=== PATIENT | male | born 1940 | race Caucasian/White ===

== ENCOUNTER 2017-01-26 15:25 | Emergency (ER) | payer MEDICARE, BC ==
[2017-01-26] MEDS ORDERED: ASPIRIN 81 MG CHEWABLE CTB PO ONE (15:38)
[2017-01-26] MEDS ORDERED: ASPIRIN 81 MG CHEWABLE CTB ONE (15:51)
[2017-01-26 15:53] LABS: BASOPHILS % (AUTO) 1 % (0-3); EOSINOPHILS % (AUTO) 4 % (0-9); HEMATOCRIT 32 % (39-53); MEAN CORPUSCULAR HGB CONC 34.9 gm/dl (32.0-36.0); MEAN CORPUSCULAR VOLUME 86 fL (80-100); MONOCYTES % (AUTO) 7.1 % (0-12); NEUTROPHILS % (AUTO) 73.4 % (37-80)
[2017-01-26] MEDS ORDERED: NITROGLYCERIN 0.4 MG TAB SL ONE (15:55)
[2017-01-26] MEDS: NITROGLYCERIN 0.4 MG TAB SL PRN ×2 (15:56→16:01)
[2017-01-26 16:03] VITALS: TEMP 98.7
[2017-01-26] MEDS ORDERED: ALUMINUM/MAGNESIUM 30 ML SUS ONE (16:08)
[2017-01-26] MEDS ORDERED: LIDOCAINE HCL 2% (VISCOUS) 20 ML SOL ONE (16:08)
[2017-01-26] MEDS ORDERED: LIDOCAINE HCL 2% (VISCOUS) 20 ML SOL MT ONE (16:08)
[2017-01-26] MEDS ORDERED: MAGNESIUM HYDROXIDE 30 ML SUS PO PRN (16:08)
[2017-01-26 16:09] LABS: POTASSIUM 4.1 mMol/L (3.5-5.1)
[2017-01-26 16:37] VITALS: BP 141/81; PULSE 60; RESP 18; O2SAT 97
== END 2017-01-26 16:35 | disposition home or self-care (01) | DRG 313 ==
LOC: ED 15:25 → EDSTATUS 15:25 → ED 16:35
DX: R07.89 Other chest pain (principal)
CPT/HCPCS: 71010; 80048; 84484; 85025; 93005; 99283

== ENCOUNTER 2018-01-08 11:44 | Day surgery (SDC) | payer MEDICARE, BC ==
[2018-01-08] MEDS ORDERED: MIDAZOLAM 2 MG/2 ML SOL ONE (12:02)
[2018-01-08] MEDS ORDERED: FENTANYL 100MCG/2ML SOL ONE (12:02)
[2018-01-08] MEDS ORDERED: PROPOFOL 500 MG/50 ML EMU IV ONE (12:03)
[2018-01-08] MEDS ORDERED: ONDANSETRON HCL 4 MG/2 ML SOL ONE (12:03)
[2018-01-08] MEDS ORDERED: LIDOCAINE HCL 1% MPF 30 SOL ONE (12:39)
[2018-01-08] MEDS ORDERED: LABETALOL HYDROCHLORIDE 5 MG/ML SOL IV ONE ×2 (12:58→12:59)
[2018-01-08] MEDS ORDERED: BACITRACIN 500 U/GM OIN TOP ONE (13:16)
[2018-01-08 13:31] VITALS: PULSE 60
[2018-01-08 14:20] VITALS: RESP 18; O2SAT 97
[2018-01-08 14:50] VITALS: BP 172/97; TEMP 97.5
== END 2018-01-08 15:08 | disposition home or self-care (01) | DRG 541 ==
LOC: SURG 11:44 → EDSTATUS 12:45 → SURG 15:08
PROVIDERS: ATTEND Surgery
DX: M86.9 Osteomyelitis, unspecified (principal); L97.529 Non-pressure chronic ulcer of other part of left foot with unspecified severity
CPT/HCPCS: 82962; J2250; J2405; J3010; A6402; A6446; A9270-GY; J2001; J2704; J3490